=== PATIENT | female | born 1955 | race Caucasian/White ===

== ENCOUNTER 2018-12-28 08:04 | Day surgery (SDC) | payer BC ==
[~2018-12-28] VITALS: Ht 170.2 cm; Wt 87.3 kg
[~2018-12-28 08:04] MED LIST: CYCL10 PO; GABA300 PO; LEVSOD50 PO; MELO7.5 PO; Norco 7.5-3251 EACH PO; Prinivil10 MG PO; Prozac40 MG PO
--- NOTE | 2018-12-28 08:59 | NUR ---
History, Chart, Medications and Allergies reviewed before start of procedure. Patient confirms NPO status and agrees with scheduled surgery. Lungs clear T/O to Auscultation. Pre-Op teaching done. Pt verbalizes understanding. Patient States Post-Procedure ride home has been arranged. Patient states colon prep results clear.
--- NOTE | 2018-12-28 09:14 | NUR ---
12/28/18 0914 Андрей Alvarez PATIENT DETERMINED TO BE ASA APPROPRIATE FOR PROPOFOL SEDATION PRIOR TO START OF PROCEDURE BY 3-LEAD EKG REVIEWED WITH PHYSICIAN PRIOR TO START OF PROCEDURE.Patient to ENDO 1History, Chart, Medications and Allergies reviewed before start of procedure.MONITOR INTACT WITH CONTINUOUS PULSE OXIMETRY AND INTERMITTENT BP.O2 VIA N/C INTACT THROUGHOUT SEDATION/PROCEDURE.
--- NOTE | 2018-12-28 09:45 | NUR ---
PT AWAKE, CONVERSING WITH STAFF. NO C/O PAIN OR DISCOMFORT. SIPPING ON PO FLUIDS AT THIS TIME.
--- NOTE | 2018-12-28 09:53 | NUR ---
TOLERATING PO FLUIDS WITHOUT DIFFICULTY. AWAITING 'S ARRIVAL FOR DC HOME.
--- NOTE | 2018-12-28 10:11 | NUR ---
REVIEWED DISCHARGE INSTRUCTIONS WITH PATIENT PRIOR TO DC. DRESSED SELF AT SIDE OF STRETCHER WITH 'S ASSISTANCE. TOLERATED ACTIVITY WELL. NO DIZZINESS NOTED. IV DC TIP INTACT. PT VERBALIZED UNDERSTANDING OF ALL INSTRUCTIONS GIVEN. DC HOME VIA WC WITH TO DRIVE HER.
== END 2018-12-28 22:41 | disposition home or self-care (01) ==
LOC: ORSCMMR 08:04 → ORD 09:00 → ORSCMMR 22:41
PROVIDERS: Internal Medicine Gastroenterology
PROC: 0DJD8ZZ Inspection of Lower Intestinal Tract, Via Natural or Artificial Opening Endoscopic (ICD-10-PCS; principal; 2018-12-28 09:00)
DX: Z12.11 Encounter for screening for malignant neoplasm of colon (principal); Z86.010 Personal history of colon polyps; E03.9 Hypothyroidism, unspecified; F32.9 Major depressive disorder, single episode, unspecified; I10 Essential (primary) hypertension; Z87.891 Personal history of nicotine dependence; Z79.899 Other long term (current) drug therapy
CPT/HCPCS: J2704; J7120

== ENCOUNTER → 2019-01-31 | Outpatient (CLI) | payer BC ==
[2019-02-02 13:07] LABS: HPV 16 Negative (Negative); HPV 18 Negative (Negative); HPV OTHER HR TYPES Negative (Negative)
== END | disposition home or self-care (01) ==
LOC: LAB SHORT 14:59 → LAB 14:59
PROVIDERS: Nurse Practitioner Family
DX: Z01.419 Encounter for gynecological examination (general) (routine) without abnormal findings (principal)
CPT/HCPCS: 87624; G0123

== ENCOUNTER → 2023-07-07 | Outpatient (CLI) | payer OTHER | END | disposition home or self-care (01) | LOC: LAB SHORT 07:13 → LAB 07:13 | DX: Q27.8 Other specified congenital malformations of peripheral vascular system (principal); R22.32 Localized swelling, mass and lump, left upper limb ==

== ENCOUNTER 2024-03-15 07:48 | Day surgery (SDC) | payer OTHER ==
[2024-03-15] VITALS (12 sets, daily range): BP systolic 97–133; BP diastolic 65–82
[~2024-03-15] VITALS: Ht 170.2 cm; Wt 91.8 kg
[~2024-03-15 07:48] MED LIST changes: +ATOR20 PO; +CALCIUM 500 MG1 EAC2 PO; +Lactated Ringer's 1,000 ML IV SCH; +METF500 PO; +MULVITA PO; +propofoL 20 ML IV ONE
--- NOTE | 2024-03-15 08:06 | NUR ---
Ambulatory in Day SurgeryPre-Op teaching done. Pt verbalizes understanding. History, Chart, Medications and Allergies reviewed before start of procedure.Patient States Post-Procedure ride home has been arranged.
--- NOTE | 2024-03-15 08:12 | NUR ---
03/15/24 0812 Gabriela Martins PATIENT DETERMINED TO BE ASA APPROPRIATE FOR PROPOFOL SEDATION PRIOR TO START OF PROCEDURE BY DR. SOTELO. CONFIRMED AND REVIEWED H&P, MEDCICATIONS, ALLERGIES, MEDICAL HISTORY, RESPIRATORY HISTORY, VITAL SIGNS, 3-LEAD EKG, CONSENTS, AND PHYSICIAN ORDERS. PATIENT CONFIRMS NPO STATUS AND AGREES WITH SCHEDULED PROCEDURE. MONITOR INTACT WITH CONTINUOUS PULSE OXIMETRY, CAPNOGRAPHY, 3-LEAD EKG, INTERMITTENT BP. SUPPLEMENTAL O2 TO BE TITRATED THROUGHOUT PROCEDURE TO MAINTAIN O2 SATURATION ABOVE 90%. PATIENT DETERMINED TO BE ASA APPROPRIATE FOR PROPOFOL SEDATION PRIOR TO START OF PROCEDURE BY DR. SOTELO
--- NOTE | 2024-03-15 09:03 | NUR ---
Discharge instructions reviewed with patient. Patient verbalizes understanding. Copy given to patient to take home. Patient States Post-Procedure ride home has been arranged. Discharged via wheelchair to private car for ride home.
== END 2024-03-15 09:04 | disposition home or self-care (01) ==
LOC: ORSCMMR 07:48 → ORD 08:30 → ORSCMMR 08:30
PROVIDERS: Internal Medicine Gastroenterology
PROC: 0DBN8ZX Excision of Sigmoid Colon, Via Natural or Artificial Opening Endoscopic, Diagnostic (ICD-10-PCS; principal; 2024-03-15 08:30)
DX: Z12.11 Encounter for screening for malignant neoplasm of colon (principal); K63.5 Polyp of colon; K57.30 Diverticulosis of large intestine without perforation or abscess without bleeding; Z86.0100 Personal history of colon polyps, unspecified; I10 Essential (primary) hypertension; E03.9 Hypothyroidism, unspecified; F32.A Depression, unspecified; E78.00 Pure hypercholesterolemia, unspecified; E11.9 Type 2 diabetes mellitus without complications; Z79.84 Long term (current) use of oral hypoglycemic drugs; Z79.899 Other long term (current) drug therapy; Z87.891 Personal history of nicotine dependence
CPT/HCPCS: 82947; 88305; J2704; J7120